=== PATIENT | female | born 1990 | race African-American/Black ===

== ENCOUNTER 2022-09-16 07:59 | Outpatient (CLI) | payer MEDICAID, SELFPAY ==
--- NOTE | 2022-09-16 08:15 | CRLHL7_ITS ---
For Patients: As a result of the Cures Act, medical imaging exams and procedure reports are released immediately into your electronic medical record. You may view this report before your referring provider. If you have questions, please contact your health care provider. INDICATION: Right flank pain TECHNIQUE: Ultrasound renal bilateral and urinary bladder COMPARISON: None FINDINGS: Right kidney: 11.4 cm. Normal echotexture and cortex. No masses, stones, or hydronephrosis. Left kidney: 12.4 cm. Normal echotexture and cortex. No masses, stones, or hydronephrosis. Bladder: The urinary bladder is decompressed. IMPRESSION: Normal renal ultrasound. Dictated by Denis Han MD @ 09/16/2022 11:19:53 AM (Electronically Signed)
--- NOTE | 2022-09-16 09:15 | CRLHL7_ITS ---
For Patients: As a result of the Century Cures Act, medical imaging exams and procedure reports are released immediately into your electronic medical record. You may view this report before your referring provider. If you have questions, please contact your health care provider. INDICATION: Chronic progressive left axillary swelling. TECHNIQUE: Directed left axillary ultrasound with this radiologist present. FINDINGS: Normal left axillary soft tissues. No fluid collection. No lymphadenopathy. No underlying mass. These findings were discussed briefly with the patient. IMPRESSION: Negative directed left axillary ultrasound. Dictated by Dominic García MD @ 09/16/2022 11:22:47 AM (Electronically Signed)
--- NOTE | 2022-09-16 10:30 | MR_ITS ---
[facility] [address] [facility] [address] Phone:?[phone] Fax:?[phone] Referring Physician Information: Wilfrido Bravo [address] [facility] [address] Phone:?[phone] Fax:?[phone] Patient:Shira Pearson D.O.B:?1990 Sex:?Female Phone:?[phone] [facility] MRN:?[id number] Exam Date:?09/16/2022 ? EXAM: MRI of the LEFT KNEE, without contrast CLINICAL HISTORY: Left knee pain. Evaluate for mass and stress fracture. Abnormal x-rays of the left knee. No reported traumatic injury or previous surgery. COMPARISONS: Plain radiographs 08/14/2022. TECHNICAL: MR sequences of the left knee: sagittals: PD, PDFS coronals: PD, STIR axials: PD, T2 FS CONTRAST: None SEDATION: None FINDINGS: Bones: There is a 1.1 cm in craniocaudad dimension by 1.2 cm in AP dimension by 2.1 cm in transverse dimension lobulated T2/STIR hyperintense lobulated lesion within the proximal left tibia at the level of the physeal scar with exuberant adjacent bone marrow edema and adjacent sclerotic changes. No fracture is seen. Patellofemoral joint: Cartilage: Intact. Retinacula: The medial and lateral retinacula are intact. Fat pads: The infrapatellar, quadriceps, and prefemoral fat pads are unremarkable. Knee joint: Effusion: Physiologic amount of joint fluid. Popliteal cyst: None. Intra-articular bodies: None. Posteromedial corner: The semimembranosus and pes anserine tendons are intact. Medial compartment: Medial meniscus: Intact. Cartilage: Intact. Lateral compartment: Lateral meniscus: Intact. Cartilage: Intact. Ligaments: Anterior cruciate ligament: Intact. Posterior cruciate ligament: Intact. Medial collateral ligament: Intact. Posterior oblique ligament: Intact. Fibular collateral ligament: Intact. Posterolateral corner: The distal biceps femoris tendon, iliotibial band, popliteus tendon, popliteus muscle, popliteofibular ligament, and arcuate ligament are intact. Extensor mechanism: Patellar tendon: Intact. Quadriceps tendon: Intact. IMPRESSION: 1. 1.1 x 1.2 x 2.1 cm T2/STIR hyperintense lobulated lesion within the proximal left tibia at the level of the physeal scar with exuberant adjacent bone marrow edema and adjacent sclerotic changes. Findings are of uncertain etiology, and underlying neoplasm and intraosseous abscess are not excluded by the imaging appearance. No fracture. 2. No ligamentous injury, tendinous pathology, meniscal tear, or chondral pathology of the left knee. RCB Electronically signed on 09/16/2022 11:42:00 AM by Geremias Castro M.D.
== END 2022-09-16 08:00 | disposition home or self-care (01) ==
LOC: US 08:00
PROVIDERS: PCP Physician Assistant Medical; Visit Provider Physician Assistant Medical
DX: R10.9 Unspecified abdominal pain (principal); M25.562 Pain in left knee; R22.32 Localized swelling, mass and lump, left upper limb
CPT/HCPCS: 73721; 76775; 76882

== ENCOUNTER 2022-12-24 15:42 | Outpatient (CLI) | payer MEDICAID, SELFPAY | END 2022-12-24 15:43 | disposition home or self-care (01) | PROVIDERS: PCP Physician Assistant Medical; Visit Provider Physician Assistant Medical | DX: Z01.818 Encounter for other preprocedural examination (principal) | CPT/HCPCS: 82306; 86140; 86480; 86703; 86803 ==

== ENCOUNTER 2023-02-05 15:11 | Outpatient (REF) | payer MEDICAID, SELFPAY ==
[2023-02-05 18:13] LABS: Eosinophils Percent Auto 1.1 % (0.0-7.0); Hematocrit 39.9 % (33.0-51.0); Hemoglobin* 12.4 gm/dL (12.0-16.0); Lymphocytes Percent Auto 25.6 % (20-44); Mean Corpuscular HGB Conc 31 gm/dL (32-36); Mean Corpuscular Hemoglobin 26 pg (26-34); Mean Corpuscular Volume 83 fL (80-100); Monocytes Percent Auto 8.1 % (0.0-11.0); Neutrophils Percent Auto 64.6 % (42.0-72.0); Platelet Count* 408 K/uL (140-440); RDW Coefficient of Variation % 14.2 % (11.5-15.5); White Blood Count* 8.78 K/uL (4.50-11.00)
[2023-02-05 18:14] LABS: Basophils Absolute Auto 0.04 K/uL (0.00-0.30); Basophils Percent Auto 0.5 % (0.0-3.0); Chloride* 104 mmol/L (96-114); Immature Granulocytes Abs Auto 0.01 K/uL (0.00-0.30); Immature Granulocytes Pct Auto 0.1 %; Lymphocytes Absolute Auto 2.25 K/uL (0.90-2.90); Neutrophils Absolute Auto 5.67 K/uL (1.7-7.0); Sodium* 137 mmol/L (135-149)
[2023-02-05 18:15] LABS: Potassium* 4.5 mmol/L (3.6-5.1)
[2023-02-05 18:18] LABS: Alanine Aminotransferase* 16 U/L (4-35); Alkaline Phosphatase* 65 U/L (40-150); Anion Gap 9 mEq/L (7-15); Aspartate Amino Transferase* 21 U/L (12-35); Bilirubin Total* 0.4 mg/dL (0.1-1.5); Blood Urea Nitrogen* 9 mg/dL (5-24); Calcium* 9.5 mg/dL (8.4-10.6); Carbon Dioxide* 24 mmol/L (20-32); Creatinine* 0.6 mg/dL (0.5-1.5); Estimated Glomerular Filt Rate 123 ml/min; Glucose* 85 mg/dL (60-115); Total Protein* 7.5 g/dL (6.0-8.3)
[2023-02-05 18:21] LABS: C Reactive Protein* 1.7 mg/dL (0.5-1.0)
[2023-02-05 18:40] LABS: Slide Review Reflex No
== END 2023-02-05 15:12 | disposition home or self-care (01) ==
LOC: NPINS 15:11
PROVIDERS: PCP Physician Assistant Medical
DX: M86.10 Other acute osteomyelitis, unspecified site (principal)
CPT/HCPCS: 80053; 85025; 86140

== ENCOUNTER 2023-03-02 10:07 | Outpatient (CLI) | payer MEDICAID, SELFPAY ==
--- NOTE | 2023-03-02 10:15 | MR_ITS ---
[address] [address] Phone:?[phone] Fax:?[phone] Referring Physician Information: Colby Birmingham M.D. [address] [facility] [address] Phone:?[phone] Fax:?[phone] Patient:Shira Pearson D.O.B:?1990 Sex:?Female Phone:?[phone] [facility] MRN:?[id number] Exam Date:?03/02/2023 EXAM: MRI of the LEFT KNEE, without contrast CLINICAL INFORMATION: Female, 32 years old, with left knee pain. INDICATION: Evaluate osteoarthritis. PRIOR SURGERY: None reported. PLAIN FILMS: None available. COMPARISONS: Left knee MRI dated 09/16/2022. TECHNICAL INFORMATION: Using a 1.5T MR scanner and a localizing surface coil: sagittals: PD, PDFS coronals: PD, T2FS axials: PD, PDFS SEDATION: None CONTRAST: None FINDINGS: Knee joint: Effusion: Trace-small right knee effusion. Popliteal cyst: Tiny, unruptured popliteal (Siu's) cyst. Loose bodies: None. Subcutaneous and extra-articular soft tissues: Postoperative changes are noted in the anteromedial soft tissues at the level of the proximal tibia, with overlying dermal thickening and surrounding soft tissue edema (sagittal PD series 10 image 17 and axial T2FS series 9 image 26). Ligaments: ACL: Intact ACL anteromedial and posterolateral bundles, without sprain or tear. PCL: Intact PCL, without acute or chronic injury. MCL: Intact MCL superficial and deep layers, without injury. LCL: Intact LCL, without injury. Posterolateral corner: No posterolateral corner soft tissue injury. Popliteus, biceps femoris, iliotibial band, popliteofibular ligament and lateral gastrocnemius are intact. Posteromedial corner: No posteromedial corner soft tissue injury. Semimembranosus, pes anserine tendons and posterior oblique ligament are without injury, tendinopathy or bursitis. Extensor mechanism: Patellar tendon: Intact, without tendinopathy. Quadriceps tendon: Intact, without tendinopathy. Retinacula: Medial and lateral retinacula are intact. Fat pads: Unremarkable infrapatellar Hoffa's, quadriceps and prefemoral fat pads. Medial compartment: Medial meniscus: No articular surface, meniscosynovial junction or root tear. No displacement, extrusion or parameniscal cyst. Medial femoral condyle: No chondromalacia or osteochondral abnormality. Medial tibial plateau: No chondromalacia or osteochondral abnormality. Lateral compartment: Lateral meniscus: No articular surface, meniscosynovial junction or root tear. No displacement, extrusion or parameniscal cyst. Lateral femoral condyle: No chondromalacia or osteochondral abnormality. Lateral tibial plateau: No chondromalacia or osteochondral abnormality. Patellofemoral joint: Patella: No chondromalacia or osteochondral abnormality. Trochlea: No chondromalacia or osteochondral abnormality. Proximal tibiofibular joint: Unremarkable, without evidence of ligament sprain injury, joint effusion or adjacent marrow edema. Bones: Cylindrical defect in the anteromedial aspect of the proximal tibial metaphysis with an associated intraosseous fluid collection measuring 2.9 x 1.0 x 1.3 cm (sagittal PDFS series 11 image 20 and axial T2FS series 9 images 25-27). Moderate surrounding STIR hyperintense and PD hypointense signal is present. IMPRESSION: 1. Status post incision and drainage of the proximal tibia with a persistent fluid collection measuring approximately 2.9 x 1.0 x 1.3 cm and surrounding abnormal bone marrow signal, which may reflect ongoing findings of osteomyelitis and intraosseous abscess. Postoperative changes are noted in the overlying soft tissues with superimposed findings of cellulitis. 2. Trace-small knee joint effusion with a tiny, unruptured popliteal (Siu's) cyst. 3. No cruciate or collateral ligament sprain/tear. 4. No medial or lateral meniscal tear. 5. No chondromalacia or osteochondral lesion/defect. BC Electronically signed on 03/02/2023 1:52:00 PM by Corby Luke M.D.
== END 2023-03-02 10:08 | disposition home or self-care (01) ==
PROVIDERS: PCP Physician Assistant Medical; Visit Provider Orthopaedic Surgery
DX: M25.562 Pain in left knee (principal); M25.462 Effusion, left knee
CPT/HCPCS: 73721

== ENCOUNTER 2023-03-26 14:18 | Outpatient (REF) | payer MEDICAID, SELFPAY ==
[2023-03-26 16:00] LABS: Basophils Absolute Auto 0.03 K/uL (0.00-0.30); Basophils Percent Auto 0.3 % (0.0-3.0); Eosinophils Absolute Auto 0.13 K/uL (0.00-0.50); Eosinophils Percent Auto 1.4 % (0.0-7.0); Hematocrit 39.7 % (33.0-51.0); Hemoglobin* 12.3 gm/dL (12.0-16.0); Immature Granulocytes Abs Auto 0.03 K/uL (0.00-0.30); Immature Granulocytes Pct Auto 0.3 %; Lymphocytes Absolute Auto 2.35 K/uL (0.90-2.90); Lymphocytes Percent Auto 26.1 % (20-44); Mean Corpuscular HGB Conc 31 gm/dL (32-36); Mean Corpuscular Hemoglobin 26 pg (26-34); Mean Corpuscular Volume 83 fL (80-100); Monocytes Percent Auto 7.4 % (0.0-11.0); Neutrophils Percent Auto 64.5 % (42.0-72.0); Platelet Count* 370 K/uL (140-440); RDW Coefficient of Variation % 14.8 % (11.5-15.5); Red Blood Count 4.76 m/uL (4.00-5.20); White Blood Count* 9.01 K/uL (4.50-11.00)
[2023-03-26 16:10] LABS: Slide Review Reflex No
[2023-03-26 16:12] LABS: Albumin* 3.9 g/dL (3.3-5.0); Chloride* 102 mmol/L (96-114); Potassium* 4.2 mmol/L (3.6-5.1); Sodium* 138 mmol/L (135-149)
[2023-03-26 16:14] LABS: Creatinine* 0.5 mg/dL (0.5-1.5); Estimated Glomerular Filt Rate 129 ml/min
[2023-03-26 16:15] LABS: Alanine Aminotransferase* 19 U/L (4-35); Alkaline Phosphatase* 73 U/L (40-150); Anion Gap 15 mEq/L (7-15); Aspartate Amino Transferase* 31 U/L (12-35); Bilirubin Total* 0.3 mg/dL (0.1-1.5); Blood Urea Nitrogen* 9 mg/dL (5-24); Carbon Dioxide* 21 mmol/L (20-32); Total Protein* 7.3 g/dL (6.0-8.3)
[2023-03-26 16:16] LABS: Glucose* 92 mg/dL (60-115)
[2023-03-26 16:18] LABS: C Reactive Protein* 1.8 mg/dL (0.5-1.0)
== END 2023-03-26 14:19 | disposition home or self-care (01) ==
LOC: NPINS 14:18
PROVIDERS: PCP Physician Assistant Medical; Visit Provider Internal Medicine
DX: M86.10 Other acute osteomyelitis, unspecified site (principal)
CPT/HCPCS: 80053; 85025; 86140

== ENCOUNTER 2023-05-14 22:12 | Outpatient (REF) | payer MEDICAID, SELFPAY ==
[2023-05-14 23:16] LABS: Albumin* 3.9 g/dL (3.3-5.0); Chloride* 104 mmol/L (96-114); Sodium* 135 mmol/L (135-149)
[2023-05-14 23:18] LABS: Creatinine* 0.4 mg/dL (0.5-1.5); Estimated Glomerular Filt Rate 136 ml/min
[2023-05-14 23:19] LABS: Alanine Aminotransferase* 14 U/L (4-35); Alkaline Phosphatase* 72 U/L (40-150); Anion Gap 10 mEq/L (7-15); Aspartate Amino Transferase* 17 U/L (12-35); Blood Urea Nitrogen* 8 mg/dL (5-24); Carbon Dioxide* 21 mmol/L (20-32); Glucose* 110 mg/dL (60-115); Total Protein* 7.2 g/dL (6.0-8.3)
[2023-05-14 23:20] LABS: Calcium* 8.8 mg/dL (8.4-10.6)
[2023-05-14 23:22] LABS: C Reactive Protein* 1.5 mg/dL (0.5-1.0)
[2023-05-14 23:23] LABS: Basophils Absolute Auto 0.03 K/uL (0.00-0.30); Basophils Percent Auto 0.3 % (0.0-3.0); Eosinophils Absolute Auto 0.15 K/uL (0.00-0.50); Eosinophils Percent Auto 1.4 % (0.0-7.0); Hematocrit 38.9 % (33.0-51.0); Hemoglobin* 12.1 gm/dL (12.0-16.0); Immature Granulocytes Abs Auto 0.08 K/uL (0.00-0.30); Immature Granulocytes Pct Auto 0.7 %; Lymphocytes Absolute Auto 2.89 K/uL (0.90-2.90); Lymphocytes Percent Auto 26.8 % (20-44); Mean Corpuscular HGB Conc 31 gm/dL (32-36); Mean Corpuscular Hemoglobin 26 pg (26-34); Mean Corpuscular Volume 84 fL (80-100); Monocytes Percent Auto 6.3 % (0.0-11.0); Neutrophils Absolute Auto 6.94 K/uL (1.7-7.0); Neutrophils Percent Auto 64.5 % (42.0-72.0); Platelet Count* 343 K/uL (140-440); RDW Coefficient of Variation % 14.3 % (11.5-15.5); Red Blood Count 4.64 m/uL (4.00-5.20); White Blood Count* 10.77 K/uL (4.50-11.00)
[2023-05-15 00:20] LABS: Bilirubin Total* < 0.1 mg/dL (0.1-1.5)
[2023-05-15 00:26] LABS: Slide Review Reflex No
== END 2023-05-14 22:13 | disposition home or self-care (01) ==
LOC: NPINS 22:12
PROVIDERS: PCP Physician Assistant Medical; Visit Provider Internal Medicine
DX: M86.9 Osteomyelitis, unspecified (principal)
CPT/HCPCS: 80053; 85025; 86140

== ENCOUNTER 2023-12-24 16:44 | Outpatient (CLI) | payer MEDICAID, SELFPAY ==
[2023-12-24 23:07] LABS: Chlamydia DNA Amplified* NOT DETECTED (No Detected); GC DNA Amplified* NOT DETECTED (No Detected)
== END 2023-12-24 16:45 | disposition home or self-care (01) ==
LOC: LKVREF 16:44
PROVIDERS: PCP Physician Assistant Medical; Visit Provider Physician Assistant Medical
DX: Z00.00 Encounter for general adult medical examination without abnormal findings (principal); Z11.3 Encounter for screening for infections with a predominantly sexual mode of transmission
CPT/HCPCS: 87491; 87591

== ENCOUNTER 2025-03-06 16:59 | Outpatient (CLI) | payer MEDICAID, SELFPAY | END 2025-03-06 17:00 | disposition home or self-care (01) | PROVIDERS: PCP Physician Assistant Medical; Visit Provider Physician Assistant Medical | DX: N91.2 Amenorrhea, unspecified (principal); M86.9 Osteomyelitis, unspecified | CPT/HCPCS: 80053; 82306; 82627; 82670; 83001; 84144; 84403; 86140 ==